=== PATIENT | male | born 1950 | race Caucasian/White ===

== ENCOUNTER 2017-02-14 06:15 | Inpatient (IN) | payer OTHER ==
[2017-02-08 08:06] VITALS: BMI 31.0
--- NOTE | 2017-02-08 08:43 | PAT Medication Instructions ---
Service Date Feb 08, 2017. Current Home Medication List Aspirin (Aspirin Ec), 81 MG PO QPM Atenolol (Tenormin), 25 MG PO QAM Atorvastatin (Lipitor), 1 TAB PO QPM Calcium Carbonate (Tums), 2 TAB PO PRN Medication Instructions For Your Scheduled Surgery - Hold the following medications the morning of surgery: Calcium Carbonate (Tums), 2 TAB PO PRN - Take the following medications the morning of surgery with a sip of water: Atenolol (Tenormin), 25 MG PO QAM - Take the following medications as scheduled the night before surgery: Calcium Carbonate (Tums), 2 TAB PO PRN (if needed) Atorvastatin (Lipitor), 1 TAB PO QPM Aspirin (Aspirin Ec), 81 MG PO QPM If you have any questions please call us at [phone] or [phone] or [phone]
--- NOTE | 2017-02-08 09:39 | DIAGNOSTIC IMAGING REPORT ---
TWO VIEW CHEST CLINICAL HISTORY: Preoperative examination. FINDINGS: PA and lateral chest radiographs are obtained. No prior studies are available for comparison at the time of dictation. The cardiomediastinal silhouette is unremarkable. The lungs and pleural spaces are clear. There is no pneumothorax. The bony thorax appears intact. IMPRESSION: No active disease in the chest. Electronically signed by: Rocco Jaeger M.D. 02/08/2017 9:37 AM Dictated Date/Time: 02/08/2017 9:37 AM
[2017-02-08 10:13] LABS: PARTIAL THROMBOPLASTIN RATIO 1.1; PROTHROMBIN TIME (PATIENT) 10.3 SECONDS (9.0-12.0)
[2017-02-14] VITALS (9 sets, daily range): BP systolic 99–140; BP diastolic 60–86; PULSE 47–79; TEMP 36.3–37.3; O2SAT 93–97; Ht 185.4 cm; Wt 104.1 kg
[~2017-02-14] VITALS: Ht 185.4 cm; Wt 104.1 kg
[~2017-02-14 06:15] MED LIST: ACETAMINOPHEN 500 MG TAB PO SCH; ASPI81TA28 PO; ATEN-173 PO; ATOR-22 PO; CALC500C3 PO; CEFAZOLIN 2000 MG/60 ML D5W IV SCH; CeleBREX 200 MG CAP PO SCH; DEXAMETHASONE 4 MG TAB PO SCH; FAMOTIDINE 20 MG TAB PO SCH; LACTATED RINGER'S 1000ML 1,000 ML IV SCH; LACTATED RINGER'S 1000ML 500 ML IV ONE; METOCLOPRAMIDE HCL 10 MG TAB PO SCH; ROPIVACAINE 5MG/ML 30 ML 150 MG, BUPIVACAINE/EPINEPHR 0.5% MPF 30 ML, KETOROLAC TROMETH... INFIL SCH; TRANEXAMIC ACID INJ 1,000 MG in SODIUM CHLORIDE 0.9% 100ML 100 ML IV SCH
[2017-02-14] MEDS ORDERED: BUPIVACAINE 0.5 % 5 MG/1 ML PF 10ML VIAL ONE (07:02)
[2017-02-14] MEDS ORDERED: BUPIVACAINE 0.25% 30 ML VIAL ONE (07:02)
--- NOTE | 2017-02-14 07:17 | History & Physical Bridge Note ---
H&P Re-Evaluation Bridge Note: I have examined the patient, reviewed the History & Physical and in the interval since the performance of the History & Physical I have noted the following changes of clinical significance: No changes noted
[2017-02-14] MEDS ORDERED: LACTATED RINGER'S 1000ML 1,000 ML IV SCH (07:22)
--- NOTE | 2017-02-14 07:41 | HISTORY & PHYSICAL EXAMINATION ---
DATE OF ADMISSION: 02/14/2017 CHIEF COMPLAINT: Right knee pain. HISTORY OF PRESENT ILLNESS: Mr. Calixto is a 66-year-old male with a 4-5 year history of right knee pain. The patient rates his pain as 5/10. He has pain with his daily activities. He has limited standing and walking tolerance. Pain is worse with weightbearing. The patient has failed conservative treatment including injections, bracing, and NSAIDs. He is now scheduled to proceed with the right total knee replacement with Dr. Rossi. PAST MEDICAL HISTORY: Hypertension and hypercholesterolemia. He denies heart disease, diabetes or DVT. PAST SURGICAL HISTORY: Lumbar diskectomy and right knee medial meniscectomy. SOCIAL HISTORY: The patient drinks one drink per week. He denies tobacco use. He lives in a 2-story home. He is and works as a correctional lieutenant. FAMILY HISTORY: Negative for DVT. MEDICATIONS: Atenolol 25 mg daily, atorvastatin 20 mg daily, and aspirin 81 mg daily. ALLERGIES: None. REVIEW OF SYSTEMS: See HPI. Ten other systems reviewed, all negative. PHYSICAL EXAMINATION: VITAL SIGNS: Height 6 feet 0 inches, weight 228 pounds, and BMI 31. GENERAL: This is a well-developed and well-nourished male who is alert and oriented x3. Mood and affect are appropriate. HEENT: Normocephalic and atraumatic. Mucous membranes are moist and intact. NECK: Supple without lymphadenopathy. HEART: Regular rate and rhythm without murmurs, rubs or gallops. LUNGS: Clear to auscultation without wheezes or rhonchi. ABDOMEN: Soft and nontender. Bowel sounds are equal and active. EXTREMITIES: No ecchymosis, redness or warmth. He has moderate effusion. He has a medial scar from previous surgery. Alignment is neutral. Range of motion is from 0-115 degrees. He has +2 medial laxity. He is neurovascularly intact with +5/5 strength. X-RAY EXAMINATION: AP and lateral views showed joint space narrowing and osteophyte formation, worsening in the medial compartment. IMPRESSION: Degenerative joint disease, right knee. PLAN: The patient will be admitted for a right total knee arthroplasty with Dr. Rossi. We will plan on aspirin for DVT prophylaxis. The patient's PCP is Dr. Zaragoza in [place], [place]. He is going to do outpatient physical therapy upon discharge.
[2017-02-14] MEDS ORDERED: MIDAZOLAM HCL 1 MG/ML 2ML VIAL ONE ×2 (07:54)
[2017-02-14] MEDS ORDERED: FENTANYL CITRATE INJ 50 MCG/1 ML 2 ML VIAL ONE (07:55)
[2017-02-14] MEDS ORDERED: PHENYLEPHRINE 100MCG/ML 5ML SYR ONE (07:59)
[2017-02-14] MEDS ORDERED: LIDOCAINE HCL 2% 2 ML VIAL (20MG/ML) ONE (07:59)
[2017-02-14] MEDS ORDERED: PROPOFOL IV EMULSION 10 MG/ML 20 ML VIAL IV ONE (07:59)
[2017-02-14] MEDS ORDERED: NURSING VERBAL MED ORDER ONE (08:45)
[2017-02-14] MEDS ORDERED: TRANEXAMIC ACID AMP 1,000 MG in NSS 100ML IV ONE (09:00)
[2017-02-14] MEDS ORDERED: POVIDONE-IODINE OP SOLN 30 ML BTL ONE (09:23)
[2017-02-14] MEDS ORDERED: ORTHO JOINT ANESTHETIC ONE (09:23)
[2017-02-14] MEDS ORDERED: BACITRACIN 50000 UNIT VIAL ONE (09:23)
[2017-02-14] MEDS ORDERED: ONDANSETRON INJ 2 MG/ML 2 ML VIAL IV PRN ×2 (10:15→11:45)
[2017-02-14] MEDS ORDERED: LABETALOL HCL IV 5 MG/ML 20ML IV PRN (10:15)
[2017-02-14] MEDS ORDERED: HYDROmorphone INJ 1 MG/ML SYR IV PRN (10:15)
[2017-02-14] MEDS ORDERED: MEPERIDINE HCL 25 MG/ML CARP IV PRN (10:15)
[2017-02-14] MEDS ORDERED: FENTANYL CITRATE INJ 50 MCG/1 ML 2 ML VIAL IV PRN (10:15)
[2017-02-14] MEDS ORDERED: EpHEDrine SULFATE INJ 50 MG/ML AMP IV PRN (10:15)
[2017-02-14] MEDS ORDERED: ATROPINE SULFATE 0.1 MG/ML 5ML SYR IV PRN (10:15)
[2017-02-14] MEDS ORDERED: EpHEDrine SULFATE 50MG/5ML SYR ONE (10:54)
--- NOTE | 2017-02-14 11:03 | [facility] Operative Report ---
Operative Report Operative Date Feb 14, 2017. Pre-Operative Diagnosis Right Knee Degenerative Joint Disease Post-Operative Diagnosis Same as Preop Procedure(s) Performed Right Total Knee Arthroplasty Tam & Nephew journey 2 nonlocked total knee arthroplasty size 7 femur 7 tibia 12 Lily [address] Rossi Commercial Driver Surgeon(s) Antonio Barrientos PA-C Estimated Blood Loss 5 ml Findings Severe end-stage tricompartmental degenerative joint disease with varus alignment subchondral sclerosis medial osteophytes and bone to bone changes Specimens A. Right Knee Bone and Tissue Complication(s) None Disposition Recovery Room / PACU Indications Patient failed attempts at conservative management including physical therapy anti-inflammatories relative rest activity modification interarticular injections has severe end-stage varus alignment with subchondral cystic changes sclerosus medial osteophytes and varus alignment of the knee joint knee that is DJD end-stage Description of Procedure After proper prepping and draping of the Right lower extremity anterior midline incision was made over the region of the extensor extensor mechanism after meticulous hemostasis was obtained and maintained in subcutaneous tissues a medial parapatellar incision was made The patella was subluxed lateralward the medial lateral gutter were cleaned from any hypertrophic synovitis and scar tissue of the distal femoral block was placed and the distal femoral osteotomy cut was made subsequently the chamfers anterior and posterior osteotomy cuts were made utilizing the 4-in-1 block the tibia was subsequently subluxed anteriorward medial and ateral meniscal remnants were excised in their entirety remnants of the anterior and posterior cruciate ligaments were excised in their entirety excellent exposure of the proximal tibia was obtained the tibial osteotomy guide was placed on the proximal tibial osteotomy cut was made once again the knee was irrigated with copious amounts of sterile saline solution the patella was subsequently everted lateralward thickened scar tissue around the patella was removed the patella was subsequently cut utilizing a freehand technique and was drilled prepared for final preparation and placement of patella socially flexion-extension gaps were checked and the equal and symmetric trials were placed to the appropriate femoral and tibial trials with poly-spacer being placed for equal flexion and extension gaps and full range of motion including extension to 0 and flexion to 140 the trial components after having been taken to recovery range of motion was subsequently removed meticulous hemostasis was obtained and maintained subsequently a knee block injection of joint cocktail including ropivacaine 0.5% 150 mg. Bupivacaine 0.5 % epinephrine 1-200,030 mL's toradol 30 mg dexamethasone 4 mg ketamine 10 mg clonidine 100 micrograms normal saline solution 30 mg was infiltrated into the soft tissues of the posterior knee medial lateral gutters and periosteal synovium special attention was paid to protect neurovascular structures at all times subsequently trial components having been removed the knee was irrigated with sterile saline solution. debris was removed the proximal tibia was subsequently prepared and was made ready for the placement of the tibial component tibial component was also cemented and tamped into position the femoral component was subsequently placed and cemented in the position the patellar component was subsequently cemented in position because hemostasis once again obtained and maintained wound having been thoroughly irrigated with debridement and debridement lavage was performed as well as a medial parapatellar incision closed with #1 Vicryl in interrupted fashion subcutaneous was closed with #2 Vicryl skin was closed with skin clips. PA-C was necessary for prepping and drapping as well as wound closure of deep fascia Sub cutaneous tissue and skin and was necessary for the case. A sterile compressive dressing was placed patient was taken to recovery in stable condition of report dictated by Flo I attest to the content of the Intraoperative Record and any orders documented therein. Any exceptions are noted below. I attest to the content of the Intraoperative Record and any orders documented therein. Any exceptions are noted below.
[2017-02-14] MEDS ORDERED: BISACODYL 10 MG SUPP PR PRN (11:45)
[2017-02-14] MEDS ORDERED: MoRPHine SULFATE 2 MG/ML CARP IV PRN (11:45)
[2017-02-14] MEDS ORDERED: ALUMINUM/MAGNESIUM/SIMETH (MAALOX MAX) 30 ML UDC PO PRN (11:45)
[2017-02-14] MEDS ORDERED: MAGNESIUM HYDROXIDE SUSP 30 ML UDC PO PRN (11:45)
[2017-02-14] MEDS ORDERED: TRAMADOL HCL 50 MG TAB PO PRN (11:45)
[2017-02-14] MEDS ORDERED: OXYCODONE HCL IR 5 MG TAB (IMMEDIATE RELEASE) PO PRN (11:45)
--- NOTE | 2017-02-14 12:56 | Anesthesiology Progress Note ---
Anesthesia Post Op Note Date & Time Feb 14, 2017 at 12:56 Vital Signs Pain Intensity: 0 Vital Signs Past 12 Hours Date Time Temp Pulse Resp B/P (MAP) Pulse Ox O2 Delivery O2 Flow Rate FiO2 02/14/17 12:52 36.2 66 20 104/65 97 Nasal Cannula 2 02/14/17 11:42 36.3 65 16 99/46 98 Mask 10 02/14/17 07:05 36.5 47 18 140/86 97 Room Air Notes Mental Status: alert / awake / arousable, participated in evaluation Pt Amnestic to Procedure: Yes Nausea / Vomiting: adequately controlled Pain: adequately controlled Airway Patency, RR, SpO2: stable & adequate BP & HR: stable & adequate Hydration State: stable & adequate Anesthetic Complications: no major complications apparent
--- NOTE | 2017-02-14 12:59 | DIAGNOSTIC IMAGING REPORT ---
RIGHT KNEE 2 VIEWS CLINICAL HISTORY: Osteoarthritis COMPARISON: None. DISCUSSION: There are postsurgical changes of a total right knee arthroplasty and patellar resurfacing. The femoral and tibial components appear well seated. Overlying surgical drains are evident. There is air in the soft tissues consistent with recent surgery. IMPRESSION: Postsurgical changes of a total right knee arthroplasty. Electronically signed by: Best Jett M.D. 02/14/2017 12:57 PM Dictated Date/Time: 02/14/2017 12:57 PM
[2017-02-14] MEDS: D5W AND 1/2NSS + 20MEQ KCL 1,000 ML IV SCH ×2 (14:20→23:52)
[2017-02-14] MEDS ORDERED: CEFAZOLIN IV SCH (18:00)
[2017-02-14] MEDS: FERROUS GLUCONATE 324 MG TAB PO SCH (18:23)
[2017-02-14] MEDS: CEFAZOLIN IV 2,000 MG in SYRINGE 0 ML IV SCH (18:26)
[2017-02-14] MEDS: KETOROLAC TROMETHAMINE 15 MG/ML VIAL IV. SCH ×2 (18:27→23:52)
[2017-02-14] MEDS ORDERED: SENNA 8.6 MG TAB PO SCH (21:00)
[2017-02-14] MEDS ORDERED: ATORVASTATIN 20 MG TAB PO SCH (21:00)
[2017-02-14] MEDS: DOCUSATE SODIUM 100 MG CAP PO SCH (21:31)
[2017-02-14] MEDS: ACETAMINOPHEN 500 MG TAB PO SCH (21:31)
[2017-02-14] MEDS: ASPIRIN 81 MG ECTAB PO SCH (21:31)
[2017-02-15] MEDS: CEFAZOLIN IV 2,000 MG in SYRINGE 0 ML IV SCH ×2 (01:49→10:24)
[2017-02-15 03:00] VITALS: BP 105/65; PULSE 67; TEMP 36.5; O2SAT 97
[2017-02-15] MEDS: ACETAMINOPHEN 500 MG TAB PO SCH ×2 (05:28→13:38)
[2017-02-15] MEDS: KETOROLAC TROMETHAMINE 15 MG/ML VIAL IV. SCH ×2 (05:29→12:14)
[2017-02-15] MEDS ORDERED: CEFAZOLIN IV 2,000 MG in DEXTROSE 5% 50ML 50 ML IV SCH (06:00)
[2017-02-15 06:30] LABS: HEMATOCRIT 34.1 % (42-52); MEAN CELL VOLUME 88.3 fL (80-100); MEAN CORPUSCULAR HEMOGLOBIN 31.3 pg (25-34); MEAN CORPUSCULAR HGB CONC 35.5 g/dl (32-36); MEAN PLATELET VOLUME 8.3 fL (7.4-10.4); PLATELET COUNT 167 K/uL (130-400); RED BLOOD COUNT 3.86 M/uL (4.7-6.1); WHITE BLOOD COUNT 17.07 K/uL (4.8-10.8)
[2017-02-15 07:10] LABS: BUN/CREATININE RATIO 16.7 (10-20); CALCIUM 8.4 mg/dl (8.5-10.1); CREATININE 1.46 mg/dl (0.60-1.40); POTASSIUM 4.7 mmol/L (3.5-5.1)
--- NOTE | 2017-02-15 07:29 | Orthopedic Progress Note ---
Orthopedic Progress Note Date of Service Feb 15, 2017. Subjective Post OP Day: 1 Reports: feeling well, Denies: chest pain, SOB, nausea / vomiting, light headedness, calf pain Objective calves soft nontender, N/V intact, capillary refill less than 2 sec., dressing C /D/I, A&O x3, toes mobile, hemovac drainage (280/330 cc per shift) Date Time Temp Pulse Resp B/P (MAP) Pulse Ox O2 Delivery O2 Flow Rate FiO2 02/15/17 03:00 36.5 67 18 105/65 (78) 97 Room Air 02/15/17 00:15 Room Air 02/14/17 23:12 36.6 79 17 112/65 (81) 93 Room Air 02/14/17 19:44 36.4 79 18 99/60 (73) 95 Room Air 02/14/17 16:01 36.3 79 18 110/66 (81) 94 Room Air 02/14/17 15:25 97 Room Air 02/14/17 15:05 36.4 73 16 113/66 (82) 97 Nasal Cannula 2.0 02/14/17 14:00 37.3 71 16 105/62 (76) 95 Nasal Cannula 2.0 02/14/17 13:49 64 20 107/63 (78) 96 Nasal Cannula 2.0 02/14/17 13:00 95 Nasal Cannula 2.0 02/14/17 13:00 95 Nasal Cannula 2.0 02/14/17 13:00 36.8 67 16 113/65 (81) 95 Nasal Cannula 2.0 02/14/17 12:57 64 14 97 02/14/17 12:57 64 14 02/14/17 12:55 109/66 02/14/17 12:52 65 12 97 02/14/17 12:52 65 12 02/14/17 12:52 36.2 66 20 104/65 97 Nasal Cannula 2 02/14/17 12:50 104/65 02/14/17 12:47 65 18 97 02/14/17 12:47 66 18 02/14/17 12:45 111/67 02/14/17 12:42 61 14 02/14/17 12:42 62 14 97 02/14/17 12:41 99/59 02/14/17 12:37 62 15 02/14/17 12:37 63 15 98 02/14/17 12:35 104/62 02/14/17 12:32 67 13 02/14/17 12:32 67 13 97 02/14/17 12:31 102/68 02/14/17 12:27 59 15 02/14/17 12:27 59 15 98 02/14/17 12:26 97/59 02/14/17 12:22 58 13 02/14/17 12:22 57 13 97 02/14/17 12:20 96/60 02/14/17 12:17 64 14 98 02/14/17 12:17 64 14 02/14/17 12:15 106/61 02/14/17 12:12 62 13 02/14/17 12:12 62 13 98 02/14/17 12:10 97/61 02/14/17 12:07 66 19 97 02/14/17 12:07 65 19 02/14/17 12:05 96/60 02/14/17 12:04 88/58 02/14/17 12:02 64 11 98 02/14/17 12:02 67 11 02/14/17 12:01 82/47 02/14/17 11:57 67 12 100 02/14/17 11:57 67 12 02/14/17 11:56 96/47 02/14/17 11:52 72 12 98 02/14/17 11:52 70 12 02/14/17 11:51 96/54 02/14/17 11:47 65 15 98 02/14/17 11:47 66 15 02/14/17 11:46 91/54 02/14/17 11:43 99/46 02/14/17 11:42 69 17 96 02/14/17 11:42 69 17 02/14/17 11:42 36.3 65 16 99/46 98 Mask 10 Laboratory Results 24 Hours: Test 02/15/17 06:22 Hematocrit 34.1 % Hemoglobin 12.1 g/dL Assessment & Plan Assessment: POD#1 sp right TKA Plan: PT/OT DVT proph- ASA 81mg bid Pain management- Martha, Tylenol, Celebrex Dc planning- DC home today with [facility]. Will need drain removed tomorrow. Inhouse Planning Pain Management: Celebrex, PO Tylenol, Oxy IR DVT Prophylaxis: TEDs, SCDs, ASA
[2017-02-15] MEDS ORDERED: SNK PO (07:33)
[2017-02-15] MEDS ORDERED: ACET-24 PO (07:33)
[2017-02-15] MEDS ORDERED: ONDA8TAB6 PO (07:33)
[2017-02-15] MEDS ORDERED: RXC5 PO (07:33)
[2017-02-15] MEDS ORDERED: ASPI81TA28 PO (07:33)
--- NOTE | 2017-02-15 07:36 | Discharge Instructions ---
Discharge Instructions Date of Service Feb 15, 2017. Admission Reason for Admission: Right Knee Osteoarthritis Discharge Discharge Diagnosis / Problem: sp right TKA Discharge Goals Goal(s): Decrease discomfort, Improve function, Increase independence Activity Recommendations Activity Limitations: per Instructions/Follow-up section . Instructions / Follow-Up Instructions / Follow-Up ACTIVITY RECOMMENDATIONS: SELF CARE INSTRUCTIONS AFTER TOTAL KNEE REPLACEMENT A. You may need to continue a physical therapy program after discharge from the hospital. There are several options available to you. Your doctor will assist you in selecting the best one for you. 1. An out-patient facility 2 to 3 times a week for therapy or home therapy. 2. Continue working on all exercises taught to you in the hospital. Your goals should be to increase bending of your knee to 90 degrees and beyond and to fully straighten your knee. B. You may progress at your own pace from walking with a walker or crutches to a cane; then to no assistive devices. C. Make walking a part of your daily routine. Be up as much as comfortable with rest periods throughout the day. Rest with leg elevation is very important. Use the ice wrap frequently for the first 3-4 weeks. D. There are no restrictions on activities. You may ride in a car, shop, participate in video game engineer and all social activities. E. Wear the long elastic stockings (MERLE hose) 20 hours a day for 2 weeks after surgery. They can be removed several times a day for laundering and for a bath. F. You may shower, no tub baths until cleared by your doctor. SPECIAL CARE INSTRUCTIONS: VERY IMPORTANT TO READ AND REVIEW A. There are a few signs you need to watch for after you are home. Call [facility] if you notice any of the followin. Increased severe knee pain. Some pain is expected especially when you exercise. 2. Increased swelling in your leg or knee; pain or swelling of the calf muscle in either lower leg. 3. Any fluid drainage from the incision. 4. Shortness of breath or chest pain. B. Please call [facility] at if you have any concerns or questions about your operation or recovery. The doctor or his nurse will return your call promptly. C. You must take antibiotics before dental work, bladder, bowel or other surgery. Your doctor will provide you with a permanent care to carry describing this precaution. IMPORTANT: * REMEMBER TO TAKE ASPIRIN, 81 MG, TWICE DAILY FOR 4 WEEKS UNLESS OTHERWISE DIRECTED. THIS IS YOUR BLOOD THINNER. * HIGH RISK PATIENTS MAY BE PRESCRIBED A STRONGER BLOOD THINNER. THIS WILL BE PROVIDED AT DISCHARGE. * CALL IF INCREASED PAIN, REDNESS, DRAINAGE OR FEVER GREATER THAT 101. * WEAR MERLE HOSE 20 HOURS PER DAY FOR 2 WEEKS. DERMABOND Prineo- This is a mesh tape dressing that is covered with glue. It should remain in place until the incision is properly healed, usually 10-14 days. This dressing is designed to naturally slough off. You may trim the excess mesh tape as it peels off. Incision may be briefly wet in a shower. Dry immediately by blotting with a clean, dry towel. Do not bath or swim until instructed by your doctor. Do not scratch, rub, or pick at the dressing. Do not apply any topical ointments or lotions until dressing is completely removed and/or instructed by your doctor. There may be a small piece of suture material at one end of your incision. Do not pull or trim this. If it is bothersome or catching on clothing, you may cover it with a band-aid. FOLLOW UP VISIT: If appointment is not already scheduled: Please call [facility] to make a follow-up appointment for 2 weeks after your surgery at . Current Hospital Diet Patient's current hospital diet: Regular Diet Discharge Diet Recommended Diet: Regular Diet Procedures Procedures Performed: Right Total Knee Arthroplasty Tam & Nephew journey 2 nonlocked total knee arthroplasty size 7 femur 7 tibia 12 Lily 35 oval patella Pending Studies Studies pending at discharge: no Medical Emergencies . Who to Call and When: Medical Emergencies: If at any time you feel your situation is an emergency, please call 911 immediately. . Non-Emergent Contact Non-Emergency issues call your: Surgeon . "Provider Documentation" section prepared by Fanny Escobedo. . VTE Core Measure Inpt VTE Proph given/why not?: Other Anticoagulation, T.E.D. Stockings, SCD's [place] Drug Monitoring Program Search Results: patient reviewed within database, no issues identified
[2017-02-15 07:41] VITALS: BP 115/72; PULSE 75; TEMP 36.5; O2SAT 96
[2017-02-15] MEDS: FERROUS GLUCONATE 324 MG TAB PO SCH ×2 (08:46→12:13)
[2017-02-15] MEDS: ASPIRIN 81 MG ECTAB PO SCH (08:47)
[2017-02-15] MEDS: DOCUSATE SODIUM 100 MG CAP PO SCH (08:47)
[2017-02-15] MEDS ORDERED: MULTIVITAMIN TAB PO SCH (09:00)
[2017-02-15] MEDS ORDERED: PANTOprazole SOD 40 MG TAB PO SCH (09:00)
[2017-02-15] MEDS: D5W AND 1/2NSS + 20MEQ KCL 1,000 ML IV SCH (10:06)
[2017-02-15 11:30] VITALS: BP 121/78; PULSE 62; TEMP 36.3; O2SAT 97
[2017-02-16] MEDS ORDERED: CeleBREX 200 MG CAP PO SCH (21:00)
== END 2017-02-15 14:00 | disposition home health service (06) | DRG 470 ==
LOC: C.ACU 06:15 → C.3E 11:49 → ENRESERV 12:51
PROVIDERS: ADMIT Orthopaedic Surgery; ATTEND Orthopaedic Surgery
PROC: 0SRC0J9 Replacement of Right Knee Joint with Synthetic Substitute, Cemented, Open Approach (ICD-10-PCS; principal; 2017-02-14 09:30)
DX: M17.11 Unilateral primary osteoarthritis, right knee (principal); I10 Essential (primary) hypertension; E78.00 Pure hypercholesterolemia, unspecified; Z79.82 Long term (current) use of aspirin; Z79.899 Other long term (current) drug therapy